=== PATIENT | female | born 1965 | race American Indian/Alaskan Native ===

== ENCOUNTER 2018-01-29 07:42 | Inpatient (IN) | payer BC, OTHER ==
[2018-01-29 07:43] VITALS: BMI 47.8
[2018-01-29 08:29] LABS: HEMOGLOBIN 13.1 g/dL (11.0-16.0); MEAN CELL VOLUME 77.6 fL (81.0-99.0); MEAN CORPUSCULAR HEMOGLOBIN 26.2 pg (27.0-31.0); MEAN CORPUSCULAR HGB CONC 33.7 g/dL (33.0-37.0); MEAN PLATELET VOLUME 8.8 fL (7.2-11.7); RBC 5.01 Mil/uL (3.80-5.20); RED CELL DISTRIBUTION WIDTH 16.4 % (11.5-14.5); WHITE BLOOD COUNT 8.5 K/uL (4.8-10.8)
[2018-01-29 08:35] LABS: PROTHROMBIN TIME 11.2 SECONDS (9.7-12.2)
--- NOTE | 2018-01-29 08:48 | C.PDOC ---
History Of Present Illness 52 year old female, with PMHx of gastritis, and HTN, presents to ED for evaluation of left sided chest pain radiating down to her left arm for the last 3 days. She reports associated heavy breathing with exertion. She reports sweating and nausea since this morning. Notes she feel pressure in her chest when laying down. No other exacerbation or alleviating factors. Notes she occasionally has back spasms. She admits to history of reflux but states this feels different. She had negative stress test several years ago, has not had s tress test done recently. Denies history of diabetes or hypercholesterolemia. Pt states chest pain has subsided for now and mostly has pain in her left shoulder. Denies palpitations, leg/ankle swelling, lightheadedness, cough, vomiting, abdominal pain, fever, or any other associated symptoms at this time. Time Seen by Provider: 01/29/18 07:56 Chief Complaint (Nursing): Chest Pain History Per: Patient History/Exam Limitations: no limitations Onset/Duration Of Symptoms: Days Current Symptoms Are (Timing): Better Quality: Pressure Associated Symptoms: Nausea Recent travel outside of the [place]: No Additional History Per: Patient Past Medical History Reviewed: Historical Data, Nursing Documentation, Vital Signs Vital Signs: Last Vital Signs Temp 97.6 F 01/29/18 07:47 Pulse 95 H 01/29/18 07:47 Resp 22 01/29/18 07:47 BP 120/91 H 01/29/18 07:47 Pulse Ox 97 01/29/18 07:47 - Medical History PMH: Anemia, Gastritis, HTN Denies: Anxiety, Bipolar Disorder, Depression, Personality Disorder, Post Traumatic Stress Disorder, Chronic Kidney Disease, Schizophrenia Surgical History: Cholecystectomy - [facility] Procedures INJECT/INFUSE ELECTROLYT (12/15/14) INJECT/INFUSE NEC (12/15/14) RELEASE UTERINE SUPPORTING STRUCTURE, PERC ENDO APPROACH (11/09/15) RELEASE UTERUS, PERCUTANEOUS ENDOSCOPIC APPROACH (11/09/15) RESECTION OF UTERUS, PERCUTANEOUS ENDOSCOPIC APPROACH (11/09/15) TRANSFUSE NONAUT RED BLOOD CELLS IN PERIPH VEIN, PERC (11/09/15) Family History: States: [place] (nephew) - Social History Hx Tobacco Use: Yes (6-8 cigarettes) Hx Alcohol Use: Yes Hx Substance Use: No - Immunization History Hx Tetanus Toxoid Vaccination: No Hx Influenza Vaccination: No Hx Pneumococcal Vaccination: No Review Of Systems Except As Marked, All Systems Reviewed And Found Negative. Constitutional: Negative for: Fever, Chills Cardiovascular: Positive for: Chest Pain. Negative for: Palpitations, Edema, Light Headedness Respiratory: Positive for: SOB with Excertion Gastrointestinal: Positive for: Nausea. Negative for: Vomiting, Abdominal Pain Musculoskeletal: Positive for: Shoulder Pain (left) Neurological: Negative for: Headache, Dizziness Physical Exam - Physical Exam Appears: Non-toxic, No Acute Distress Skin: Normal Color, Warm, Dry Head: Atraumatic, Normacephalic Eye(s): bilateral: Normal Inspection Oral Mucosa: Moist Neck: Normal ROM, Supple Chest: Symmetrical, No Deformity, No Tenderness Cardiovascular: Rhythm Regular, No Murmur Respiratory: Normal Breath Sounds, No Rales, No Rhonchi, No Wheezing Gastrointestinal/Abdominal: Soft, No Tenderness Back: No Vertebral Tenderness, No Paraspinal Tenderness Extremity: Normal ROM, No Pedal Edema Neurological/Psych: Oriented x3, Normal Speech ED Course And Treatment - Laboratory Results Result Diagrams: 01/29/18 08:22 01/29/18 09:11 ECG: Interpreted By Me, Viewed By Me ECG Rhythm: Sinus Rhythm ECG Interpretation: No Acute Changes Interpretation Of ECG: Normal intervals, normal axis. No ST/T wave changes. Rate From EC (bpm) O2 Sat by Pulse Oximetry: 97 (RA) Pulse Ox Interpretation: Normal - Radiology CXR: Read By Radiologist CXR Interpretation: Yes: No Acute Disease Medical Decision Making Medical Decision Making: Plan: * Blood work * Nitroglycerin * Re-eval Patient reported some improvement after SL nitro. Labs, EKG and CXR reviewed and results discussed with patient. Recommended admission for further cardiac workup, patient is agreeable. 1303- Case discussed with Dr. Jaeger, patient's PMD. Would like hospitalist admission. 1332- Case discussed with Dr. Pollard, hospitalist personal shopper, accepts patient admission. Disposition - Disposition Disposition: HOSPITALIZED Disposition Time: 13:32 Condition: GOOD - Clinical Impression Clinical Impression: Chest pain - Scribe Statement The provider has reviewed the documentation as recorded by the Junaidibleatha Ruiz All medical record entries made by the Junaidibleatha were at my direction and personally dictated by me. I have reviewed the chart and agree that the record accurately reflects my personal performance of the history, physical exam, medical decision making, and the department course for this patient. I have also personally directed, reviewed, and agree with the discharge instructions and disposition.
[2018-01-29 09:19] LABS: BLOOD UREA NITROGEN 15 mg/dL (7-17); CALCIUM 9.5 mg/dl (8.6-10.4); GFR NON-AFRICAN AMERICAN > 60
--- NOTE | 2018-01-29 12:20 | RAD ---
Date of service: 01/29/2018 HISTORY: chest pain COMPARISON: No prior. FINDINGS: LUNGS: The lungs are well inflated and clear. PLEURA: No significant pleural effusion identified, no pneumothorax apparent. CARDIOVASCULAR: Normal. OSSEOUS STRUCTURES: No significant abnormalities. VISUALIZED UPPER ABDOMEN: Normal. OTHER FINDINGS: None. IMPRESSION: No active pulmonary disease.
--- NOTE | 2018-01-29 15:53 | CP.PCM.HP ---
History of Present Illness - History of Present Illness History of Present Illness: 52 yo F with PMHx of HTN, HLD, hiatal hernia, gastritis and anxiety presents to the ED with complaints of epigastric, esophageal discomfort for 3 days. Pt describes the pain as burning and uncomfortable, that radiates down the left arm and up the left side of her neck. Pt says the pain is worse with lying down and and eating and better with burping and BM. At work this morning the patient began to feel dizzy, became diaphoretic and had one episode of emesis consisting of bile, which prompted her to come to the ED. Pt also admits to having a productive cough for a week and chest congestion that has been causing some SOB on exertion. Pt complains of bilateral back pain, and has a history of muscle spasms. Pt says she is feeling better after the episode of emesis and since arriving at the ED. PMD: Dr. Oviedo PMHx: HTN, HLD, gastritis, hiatal hernia, anxiety PSHx: Hysterectomy, cholecystectomy Allergies: NKDA Medications: Dexelant, cyclobenzapril, Senna, Exforge, Bistolic Family HX: non contributory Social: Tobacco- 18 pack years Alcohol: socially Drugs: denies Present on Admission - Present on Admission Any Indicators Present on Admission: No Review of Systems - EENT Eyes: absent: Change in Vision Nose/Mouth/Throat: Dysphagia - Cardiovascular Cardiovascular: Chest Pain (left), Pain Radiating to Arm/Neck/Jaw (tingling into left arm and up neck) - Respiratory Respiratory: Excessive Mucous Production - Gastrointestinal Gastrointestinal: Dyspepsia, Dysphagia, Early Satiety, Heartburn, Vomiting - Genitourinary Genitourinary: absent: Dysuria - Reproductive: Female Reproductive:Female: S/P Hysterectomy - Musculoskeletal Musculoskeletal: Back Pain - Neurological Neurological: absent: Dizziness - Psychiatric Psychiatric: Anxiety Past Patient History - Infectious Disease Hx of Infectious Diseases: None - Past Medical History & Family History Past Medical History?: Yes - Past Social History Smoking Status: Light Smoker < 10 Cigarettes Daily - CARDIAC Hx Hypertension: Yes - PULMONARY Hx Respiratory Disorders: No - NEUROLOGICAL Hx Neurological Disorder: No - HEENT Hx HEENT Problems: No - RENAL Hx Chronic Kidney Disease: No - ENDOCRINE/METABOLIC Hx Endocrine Disorders: No - HEMATOLOGICAL/ONCOLOGICAL Hx Anemia: Yes - INTEGUMENTARY Hx Dermatological Problems: No - MUSCULOSKELETAL/RHEUMATOLOGICAL Hx Musculoskeletal Disorders: Yes Hx Back Pain: Yes - GASTROINTESTINAL Hx Gastritis: Yes - GENITOURINARY/GYNECOLOGICAL Hx Genitourinary Disorders: No Hx Reproductive Disorders: Yes (fibroid uterus) - PSYCHIATRIC Hx Anxiety: No Hx Bipolar Disorder: No Hx Depression: No Hx Post Traumatic Stress Disorder: No Hx Schizophrenia: No Hx Substance Use: No - SURGICAL HISTORY Hx Cholecystectomy: Yes - ANESTHESIA Hx Anesthesia: Yes Hx Anesthesia Reactions: No Hx Malignant Hyperthermia: No Meds Allergies/Adverse Reactions: Allergies Allergy/AdvReac Type Severity Reaction Status Date / Time No Known Allergies Allergy Verified 01/29/18 07:53 Physical Exam - Constitutional Appears: No Acute Distress - Head Exam Head Exam: ATRAUMATIC, NORMAL INSPECTION, NORMOCEPHALIC - Eye Exam Eye Exam: Conjunctival injection, EOMI, Normal appearance - ENT Exam ENT Exam: Mucous Membranes Moist, Normal Exam - Neck Exam Neck exam: Positive for: Normal Inspection - Respiratory Exam Respiratory Exam: Clear to Auscultation Bilateral, NORMAL BREATHING PATTERN. absent: Wheezes - Cardiovascular Exam Cardiovascular Exam: REGULAR RHYTHM, +S1, +S2. absent: Tachycardia - GI/Abdominal Exam GI & Abdominal Exam: Normal Bowel Sounds, Soft. absent: Distended, Tenderness - Extremities Exam Extremities exam: Positive for: calf tenderness. Negative for: normal inspection, pedal edema - Neurological Exam Neurological exam: Alert, Oriented x3 - Psychiatric Exam Psychiatric exam: Normal Affect, Normal Mood - Skin Skin Exam: Dry, Intact, Normal Color, Warm Results - Vital Signs Recent Vital Signs: Last Vital Signs Temp 97.6 F 01/29/18 07:47 Pulse 84 01/29/18 12:08 Resp 16 01/29/18 12:08 BP 110/77 01/29/18 12:08 Pulse Ox 98 01/29/18 12:08 - Labs Result Diagrams: 01/29/18 08:22 01/29/18 09:11 Labs: Laboratory Results - last 24 hr 01/29/18 01/29/18 01/29/18 08:22 08:22 09:11 WBC 8.5 RBC 5.01 Hgb 13.1 Hct 38.9 MCV 77.6 L MCH 26.2 L MCHC 33.7 RDW 16.4 H Plt Count 318 MPV 8.8 PT 11.2 INR 1.0 APTT 29 Sodium 138 Potassium 4.2 Chloride 99 Carbon Dioxide 28 Anion Gap 15 BUN 15 Creatinine 0.8 Est GFR ( Amer) > 60 Est GFR (Non-Af Amer) > 60 Random Glucose 108 H Calcium 9.5 Troponin I < 0.0120 Assessment & Plan - Assessment and Plan (Free Text) Assessment: 52 yo F with PMHx of HTN, HLD, hiatal hernia, GERD and anxiety, admitted w/ complaints of chest pain/discomfort r/o ACS -EKG WNL -CE - x2 -f/u am EKG -ASA 81mg -crestor 20mg -f/u lipid panel GERD, most consistent w/ symptoms -CT abd/pelvis 02/02 reveals distal esophageal thickening/inflammation -protonix 40mg po qd -pt not compliant w/ recs to follow up outpatient GI -recommend outpatient endoscopy +/- bx per GI HTN -norvasc 10mg -nebivolol 10mg po Dispo: f/u cardiac enzymes and am labs, if negative pt can be discharged home to follow up with PMD for referrals to cardio and GI for further evaluation.
[2018-01-29] MEDS: Enoxaparin 40 mg Syringe SC SCH (18:05)
[2018-01-29] MEDS ORDERED: Enoxaparin 40 mg Syringe ONE (18:05)
[2018-01-29] MEDS ORDERED: Pantoprazole 40 mg EC Tab PO ONE (18:05)
[2018-01-29] MEDS: Pantoprazole 40 mg EC Tab PO SCH (18:06)
[2018-01-29 18:34] VITALS: RESP 20
[2018-01-30 00:05] LABS: CK-MB 0.53 ng/mL (0.0-3.38)
[2018-01-30 08:17] VITALS: TEMP 98.1
[2018-01-30 08:55] LABS: BASO % 0.5 % (0.0-2.0); EOS # 0.1 K/uL (0.0-0.7); EOS % 1.1 % (0.0-4.0); HEMOGLOBIN 12.4 g/dL (11.0-16.0); LYMPH # 3.3 K/uL (1.0-4.3); LYMPH % 39.8 % (20.0-40.0); MEAN CELL VOLUME 77.7 fL (81.0-99.0); MEAN CORPUSCULAR HEMOGLOBIN 25.3 pg (27.0-31.0); MEAN CORPUSCULAR HGB CONC 32.5 g/dL (33.0-37.0); MEAN PLATELET VOLUME 8.8 fL (7.2-11.7); MONO # 0.5 K/uL (0.0-0.8); MONO % 6.5 % (0.0-10.0); NEUT # 4.4 K/uL (1.8-7.0); NEUT % 52.1 % (50.0-75.0); NRBC % 0.1 % (0.0-2.0); RBC 4.91 Mil/uL (3.80-5.20); RED CELL DISTRIBUTION WIDTH 16.6 % (11.5-14.5); WHITE BLOOD COUNT 8.4 K/uL (4.8-10.8)
[2018-01-30 09:09] LABS: ALB/GLOB RATIO 1.4 (1.0-2.1); ALBUMIN 4.1 g/dL (3.5-5.0); ALT/SGPT 24 U/L (9-52); AST/SGOT 14 U/L (14-36); BLOOD UREA NITROGEN 16 mg/dL (7-17); CALCIUM 9.5 mg/dl (8.6-10.4); GFR NON-AFRICAN AMERICAN > 60
[2018-01-30] MEDS: Pantoprazole 40 mg EC Tab PO SCH (09:33)
[2018-01-30] MEDS: Enoxaparin 40 mg Syringe SC SCH (09:36)
[2018-01-30] MEDS ORDERED: Docusate-Senna 50 mg-8.6 mg Tab PO SCH (10:00)
[2018-01-30 10:31] LABS: HDL CHOLESTEROL 49 mg/dL (30-70)
[2018-01-30 10:42] LABS: LDL CHOLESTEROL 142 mg/dL (0-129)
[2018-01-30 11:09] VITALS: BP 105/60; PULSE 70; O2SAT 99
--- NOTE | 2018-01-30 12:05 | CP.PCM.DIS ---
<Sujata Hollingsworth - Last Filed: 01/30/18 12:19> Provider - Provider Date of Admission: 01/29/18 13:32 Attending physician: Coreen Pollard DO Time Spent in preparation of Discharge (in minutes): 29 Diagnosis - Discharge Diagnosis (1) Chest pain Status: Acute Comment: likely 2/2 to GERD, cardiac workup negative (2) GERD (gastroesophageal reflux disease) Status: Acute Hospital Course - Lab Results Lab Results: Most Recent Lab Values WBC 8.4 K/uL (4.8-10.8) 01/30/18 08:42 RBC 4.91 Mil/uL (3.80-5.20) 01/30/18 08:42 Hgb 12.4 g/dL (11.0-16.0) 01/30/18 08:42 Hct 38.2 % (34.0-47.0) 01/30/18 08:42 MCV 77.7 fL (81.0-99.0) L 01/30/18 08:42 MCH 25.3 pg (27.0-31.0) L 01/30/18 08:42 MCHC 32.5 g/dL (33.0-37.0) L 01/30/18 08:42 RDW 16.6 % (11.5-14.5) H 01/30/18 08:42 Plt Count 288 K/uL (130-400) 01/30/18 08:42 MPV 8.8 fL (7.2-11.7) 01/30/18 08:42 Neut % (Auto) 52.1 % (50.0-75.0) 01/30/18 08:42 Lymph % (Auto) 39.8 % (20.0-40.0) 01/30/18 08:42 [place] % (Auto) 6.5 % (0.0-10.0) 01/30/18 08:42 Eos % (Auto) 1.1 % (0.0-4.0) 01/30/18 08:42 Baso % (Auto) 0.5 % (0.0-2.0) 01/30/18 08:42 Neut # (Auto) 4.4 K/uL (1.8-7.0) 01/30/18 08:42 Lymph # (Auto) 3.3 K/uL (1.0-4.3) 01/30/18 08:42 [place] # (Auto) 0.5 K/uL (0.0-0.8) 01/30/18 08:42 Eos # (Auto) 0.1 K/uL (0.0-0.7) 01/30/18 08:42 Baso # (Auto) 0.0 K/uL (0.0-0.2) 01/30/18 08:42 PT 11.2 SECONDS (9.7-12.2) 01/29/18 08:22 INR 1.0 01/29/18 08:22 APTT 29 SECONDS (21-34) 01/29/18 08:22 Sodium 137 mmol/L (132-148) 01/30/18 08:42 Potassium 4.3 mmol/L (3.6-5.2) 01/30/18 08:42 Chloride 98 mmol/L (98-107) 01/30/18 08:42 Carbon Dioxide 29 mmol/L (22-30) 01/30/18 08:42 Anion Gap 14 (10-20) 01/30/18 08:42 BUN 16 mg/dL (7-17) 01/30/18 08:42 Creatinine 0.8 mg/dL (0.7-1.2) 01/30/18 08:42 Est GFR ( Amer) > 60 01/30/18 08:42 Est GFR (Non-Af Amer) > 60 01/30/18 08:42 Random Glucose 97 mg/dL (65-105) 01/30/18 08:42 Calcium 9.5 mg/dl (8.6-10.4) 01/30/18 08:42 Phosphorus 4.4 mg/dL (2.5-4.5) 01/30/18 08:42 Magnesium 1.7 mg/dL (1.6-2.3) 01/30/18 08:42 Total Bilirubin 0.5 mg/dL (0.2-1.3) 01/30/18 08:42 AST 14 U/L (14-36) 01/30/18 08:42 ALT 24 U/L (9-52) 01/30/18 08:42 Alkaline Phosphatase 79 U/L (38-126) 10/13/18 08:42 Total Creatine Kinase 124 U/L (30-135) 01/29/18 23:34 CK-MB (Mass) 0.53 ng/mL (0.0-3.38) 01/29/18 23:34 Troponin I < 0.0120 ng/mL (0.00-0.120) 01/29/18 23:34 NT-Pro-B Natriuret Pep 14.9 pg/mL (0-900) 01/29/18 23:34 Total Protein 7.0 g/dL (6.3-8.3) 01/30/18 08:42 Albumin 4.1 g/dL (3.5-5.0) 01/30/18 08:42 Globulin 3.0 gm/dL (2.2-3.9) 01/30/18 08:42 Albumin/Globulin Ratio 1.4 (1.0-2.1) 01/30/18 08:42 Triglycerides 149 mg/dL (0-149) 01/30/18 08:42 Cholesterol 224 mg/dL (0-199) H 01/30/18 08:42 LDL Cholesterol Direct 142 mg/dL (0-129) H 01/30/18 08:42 HDL Cholesterol 49 mg/dL (30-70) 01/30/18 08:42 TSH 3rd Generation 0.78 mIU/L (0.46-4.68) 01/30/18 08:42 - Hospital Course Hospital Course: Patient evaluated and [facility] at [facility] from 01/29/18-01/30/18. Chest pain was evaluated with blood work to trend cardiac enzymes and EKGs, all WNL. Pt's presentation is most consistent with GERD. Patient's symptoms subsided with PPI. Patient is stable to follow up with PMD outpatient and referrals to cardio and GI at their discretion. HPI on admission: "52 yo F with PMHx of HTN, HLD, hiatal hernia, gastritis and anxiety presents to the ED with complaints of epigastric, esophageal discomfort for 3 days. Pt describes the pain as burning and uncomfortable, that radiates down the left arm and up the left side of her neck. Pt says the pain is worse with lying down and and eating and better with burping and BM. At work this morning the patient began to feel dizzy, became diaphoretic and had one episode of emesis consisting of bile, which prompted her to come to the ED. Pt also admits to having a productive cough for a week and chest congestion that has been causing some SOB on exertion. Pt complains of bilateral back pain, and has a history of muscle spasms. Pt says she is feeling better after the episode of emesis and since arriving at the ED." Refer to EMR for full account of services. Discharge Exam - Head Exam Head Exam: ATRAUMATIC, NORMAL INSPECTION, NORMOCEPHALIC - Eye Exam Eye Exam: EOMI, Normal appearance - ENT Exam ENT Exam: Mucous Membranes Moist, Normal Exam - Neck Exam Neck exam: Normal Inspection - Respiratory Exam Respiratory Exam: Clear to PA & Lateral, NORMAL BREATHING PATTERN, UNREMARKABLE - Cardiovascular Exam Cardiovascular Exam: REGULAR RHYTHM, +S1, +S2 - GI/Abdominal Exam GI & Abdominal Exam: Normal Bowel Sounds, Unremarkable. absent: Distended, Tenderness - Neurological Exam Neurological exam: Alert, Oriented x3 - Psychiatric Exam Psychiatric exam: Normal Affect, Normal Mood - Skin Skin Exam: Dry, Intact, Normal Color, Warm Discharge Plan - Follow Up Plan Condition: GOOD Disposition: HOME/ ROUTINE Instructions: Hiatal Hernia, Chest Pain, Acid Reflux (GERD), Adolescent (DC) Additional Instructions: Patient is stable for discharge home. Patient is advised to return to her PMD within 2 weeks of discharge to get referrals for GI and cardio if needed. Patient is advised to get endoscopy with GI outpatient, and be treated for GERD accordingly. Patient is advised to lose weight, as this will help with symptoms of hiatal hernia, and to stop smoking. Patient should continue all home medications as prescribed by PMD. Pt advised to return to ED w/ any worsening of symptoms. Referrals: Tl Pereira MD [Staff Provider] - <Tl Pereira - Last Filed: 01/30/18 16:32> Provider - Provider Date of Admission: 01/29/18 13:32 Attending physician: Coreen Pollard DO Hospital Course - Lab Results Lab Results: Most Recent Lab Values WBC 8.4 K/uL (4.8-10.8) 01/30/18 08:42 RBC 4.91 Mil/uL (3.80-5.20) 01/30/18 08:42 Hgb 12.4 g/dL (11.0-16.0) 01/30/18 08:42 Hct 38.2 % (34.0-47.0) 01/30/18 08:42 MCV 77.7 fL (81.0-99.0) L 01/30/18 08:42 MCH 25.3 pg (27.0-31.0) L 01/30/18 08:42 MCHC 32.5 g/dL (33.0-37.0) L 01/30/18 08:42 RDW 16.6 % (11.5-14.5) H 01/30/18 08:42 Plt Count 288 K/uL (130-400) 01/30/18 08:42 MPV 8.8 fL (7.2-11.7) 01/30/18 08:42 Neut % (Auto) 52.1 % (50.0-75.0) 01/30/18 08:42 Lymph % (Auto) 39.8 % (20.0-40.0) 01/30/18 08:42 [place] % (Auto) 6.5 % (0.0-10.0) 01/30/18 08:42 Eos % (Auto) 1.1 % (0.0-4.0) 01/30/18 08:42 Baso % (Auto) 0.5 % (0.0-2.0) 01/30/18 08:42 Neut # (Auto) 4.4 K/uL (1.8-7.0) 01/30/18 08:42 Lymph # (Auto) 3.3 K/uL (1.0-4.3) 01/30/18 08:42 [place] # (Auto) 0.5 K/uL (0.0-0.8) 01/30/18 08:42 Eos # (Auto) 0.1 K/uL (0.0-0.7) 01/30/18 08:42 Baso # (Auto) 0.0 K/uL (0.0-0.2) 01/30/18 08:42 PT 11.2 SECONDS (9.7-12.2) 01/29/18 08:22 INR 1.0 01/29/18 08:22 APTT 29 SECONDS (21-34) 01/29/18 08:22 Sodium 137 mmol/L (132-148) 01/30/18 08:42 Potassium 4.3 mmol/L (3.6-5.2) 01/30/18 08:42 Chloride 98 mmol/L (98-107) 01/30/18 08:42 Carbon Dioxide 29 mmol/L (22-30) 01/30/18 08:42 Anion Gap 14 (10-20) 01/30/18 08:42 BUN 16 mg/dL (7-17) 01/30/18 08:42 Creatinine 0.8 mg/dL (0.7-1.2) 01/30/18 08:42 Est GFR ( Amer) > 60 01/30/18 08:42 Est GFR (Non-Af Amer) > 60 01/30/18 08:42 Random Glucose 97 mg/dL (65-105) 01/30/18 08:42 Calcium 9.5 mg/dl (8.6-10.4) 01/30/18 08:42 Phosphorus 4.4 mg/dL (2.5-4.5) 01/30/18 08:42 Magnesium 1.7 mg/dL (1.6-2.3) 01/30/18 08:42 Total Bilirubin 0.5 mg/dL (0.2-1.3) 01/30/18 08:42 AST 14 U/L (14-36) 01/30/18 08:42 ALT 24 U/L (9-52) 01/30/18 08:42 Alkaline Phosphatase 79 U/L (38-126) 01/30/18 08:42 Total Creatine Kinase 124 U/L (30-135) 01/29/18 23:34 CK-MB (Mass) 0.53 ng/mL (0.0-3.38) 01/29/18 23:34 Troponin I < 0.0120 ng/mL (0.00-0.120) 01/29/18 23:34 NT-Pro-B Natriuret Pep 14.9 pg/mL (0-900) 01/29/18 23:34 Total Protein 7.0 g/dL (6.3-8.3) 01/30/18 08:42 Albumin 4.1 g/dL (3.5-5.0) 01/30/18 08:42 Globulin 3.0 gm/dL (2.2-3.9) 01/30/18 08:42 Albumin/Globulin Ratio 1.4 (1.0-2.1) 01/30/18 08:42 Triglycerides 149 mg/dL (0-149) 01/30/18 08:42 Cholesterol 224 mg/dL (0-199) H 01/30/18 08:42 LDL Cholesterol Direct 142 mg/dL (0-129) H 01/30/18 08:42 HDL Cholesterol 49 mg/dL (30-70) 01/30/18 08:42 TSH 3rd Generation 0.78 mIU/L (0.46-4.68) 01/30/18 08:42 Attending/Attestation - Attestation I have personally seen and examined this patient.: Yes I have fully participated in the care of the patient.: Yes I have reviewed all pertinent clinical information, including history, physical exam and plan: Yes Notes (Text): seen and examined. Patient has reflux and vomti=ed yesterday. Discussed about the importance of having an EGD out pt. Adviced to loose weight,stop smoking and follow her primary care
--- NOTE | 2018-02-01 20:50 | CARD ---
APPROVED REPORT Date of service: 01/29/2018 EKG Measurement Heart [id number] <Conclusion> Normal sinus rhythm Normal ECG
--- NOTE | 2018-02-01 21:39 | CARD ---
APPROVED REPORT Date of service: 01/30/2018 EKG Measurement Heart [id number] <Conclusion> Normal sinus rhythm Nonspecific T wave abnormality Abnormal ECG
== END 2018-01-30 15:06 | disposition home or self-care (01) | DRG 392 ==
LOC: C.ER 07:42 → C.9E 13:32 → C.5S 17:53
PROVIDERS: ADMIT Hospitalist; ATTEND Hospitalist
DX: K21.9 Gastro-esophageal reflux disease without esophagitis (principal); R07.89 Other chest pain; I10 Essential (primary) hypertension; E78.5 Hyperlipidemia, unspecified; F41.9 Anxiety disorder, unspecified; K44.9 Diaphragmatic hernia without obstruction or gangrene; Z90.49 Acquired absence of other specified parts of digestive tract; Z90.710 Acquired absence of both cervix and uterus